=== PATIENT | female | born 1960 | race Caucasian/White ===

== ENCOUNTER 2018-10-10 15:18 | Emergency (ER) | payer OTHER ==
[~2018-10-10] VITALS: Ht 152.4 cm; Wt 104.3 kg
[2018-10-10 15:20] VITALS: BP_SYST 161
--- NOTE | 2018-10-10 15:25 | NUR ---
Patient to ER bed 6 for evaluation.
--- NOTE | 2018-10-10 15:45 | NUR ---
PATIENT CAME IN COMPLAINING OF PAIN IN RIGHT SIDE OF FACE 8/10 SINCE YESTERDAY. PATIENT STATES SHE THINKS SHE HAS A SWOLLEN SALIVARY GLAND BECAUSE SHE HAS HAD IT IN PAST. PATIENT STATES NO DIFFICULTY SWALLOWING. PATIENT NOT COMPLAINING OF SOB, NAUSEA, OR VOMITING. PATIENT STATES SHE HAS NOT TAKEN ANYTHING FOR PAIN. ALERT AND ORIENTED X4.
--- NOTE | 2018-10-10 15:53 | NUR ---
ER Dr. CUETO at bedside examining patient.
--- NOTE | 2018-10-10 16:40 | NUR ---
PATIENT WHEELED TO CT IN STABLE CONDITION.
[2018-10-10] MEDS ORDERED: IBUPROFEN 600 MG TABLET PO ONE (16:45)
--- NOTE | 2018-10-10 17:11 | NUR ---
PATIENT STILL IN PAIN. IBUPROFEN DIDNT HELP. GAVE PATIENT ICE PACK. DR CUETO AWARE.
[2018-10-10 17:25] VITALS: BP_SYST 161
--- NOTE | 2018-10-10 17:25 | NUR ---
Patient given written and verbal discharge instructions and verbalizes understanding. ER MD discussed with patient the results and treatment provided. Patient in stable condition. ID arm band removed. Rx of norco given. Patient educated on pain management and to follow up with PMD. Pain Scale 5/10 tolerable. Patient sent home with pain medication. Opportunity for questions provided and answered. Medication side effect fact sheet provided.
== END 2018-10-10 17:25 | disposition home or self-care (01) ==
LOC: SED 15:18
DX: K11.20 Sialoadenitis, unspecified (principal); I10 Essential (primary) hypertension; Z88.0 Allergy status to penicillin
CPT/HCPCS: 70486-TC; 99284